=== PATIENT | male | born 1985 | race Caucasian/White ===

== ENCOUNTER 2019-07-08 20:58 | Emergency (ER) | payer BC, SELFPAY ==
[2019-07-08] VITALS (12 sets, daily range): BP systolic 129–146; BP diastolic 80–89; PULSE 90–120; RESP 22; TEMP 37.2; O2SAT 93–99
--- NOTE | ~2019-07-08 | XR_ITS ---
EXAMINATION: XR chest 2V 07/08/2019 21:30 INDICATION: Near syncope PROCEDURE: 2 view chest COMPARISON: No prior studies for comparison. FINDINGS: The lungs are clear. The cardiomediastinal silhouette is within normal limits. There are no pleural effusions. There is no pneumothorax suspected. IMPRESSION: 1: NO ACUTE CARDIOPULMONARY DISEASE. Reviewed, dictated and finalized at location A.
--- NOTE | 2019-07-08 21:08 | ECG_ITS ---
Measurements Intervals [place] Rate: 120 P: 58 ID: [id number] QRS: 76 QRSD: 104 T: -12 QT: 339 QTc: 479 Interpretive Statements SINUS TACHYCARDIA CONSIDER INFERIOR INFARCT, AGE INDETERMINATE BASELINE WANDER- II, III ABNORMAL ECG Electronically Signed On 07-09-2019 7:06:50 CDT by Adonis Montenegro D.O.
--- NOTE | 2019-07-08 21:08 | ED.GENADULT ---
HPI - General Adult General Chief complaint: Dizziness Stated complaint: blacked out at home Time Seen by Provider: 07/08/19 20:59 History of Present Illness HPI narrative: Patient is a 34-year-old male who presents the ER with near syncope. Patient states he was lying down when he got up to walk and started having tunnel vision. He briefly blacked out and hit his head on the wall but never collapsed to the ground. He had no facial droop or slurred speech or extremity weakness. Reports he has not been eating and drinking well over the last couple days. No fever/chills/sweats/nausea/vomiting. No dark black stools or hematemesis. Denies dysuria or dark-colored urine. Had one similar episode yesterday which is what prompted him to come in today. Related Data Allergies Allergy/AdvReac Type Severity Reaction Status Date / Time NKDA Allergy Mild Uncoded 02/26/10 16:49 Review of Systems Review of Systems: All systems reviewed & are unremarkable except as noted in HPI and below Cardiovascular: Cardiovascular: Denies chest pain Gastrointestinal: Gastrointestinal: Denies nausea and Denies vomiting Genitourinary: Genitourinary: Reports oliguria, Denies dysuria and Denies urinary frequency Neurologic: Reports dizziness, Denies focal weakness and Denies numbness Comments: Near syncope PMFSH Past Medical History Medical History (Updated 07/08/19 @ 23:45 by Randy Ferreira MD) Allergic conjunctivitis of both eyes Essential hypertension (04/15/17) Family history of early CAD grandfather age 37 Testicular dysfunction Varicose vein of leg Social History Social History Smoking status: Never smoker Alcohol intake: never Exam Narrative: Exam Narrative: GENERAL: Well-appearing, well-nourished, and in no acute distress. HEAD: Normocephalic, atraumatic. ENT: Mucous membranes moist. CHEST: Clear to auscultation. No respiratory distress. HEART: Tachycardic and regular. Normal peripheral pulses. EXTREMITIES: Normal range of motion. No edema. SKIN: Warm, dry, no rash. NEURO: Clear speech, normal gait/balance. Alert and oriented x3. PSYCH: Normal mood and affect. Course Course Emergency Course: Feels much better with fluid. Discharge home. Vital Signs Vital signs: Vital Signs Temperature 99.0 F 07/08/19 21:01 Respiratory Rate 22 H 07/08/19 21:01 Blood Pressure 138/87 07/08/19 21:01 Pulse Oximetry 98 07/08/19 21:01 Temperature 99.0 F 07/08/19 21:01 Pulse Rate 90 07/08/19 23:25 Respiratory Rate 22 H 07/08/19 23:25 Blood Pressure 137/89 07/08/19 23:25 Pulse Oximetry 96 07/08/19 23:25 Medical Decision Making Vital Signs Vital Signs: Vital Signs Temperature 99.0 F 07/08/19 21:01 Respiratory Rate 22 H 07/08/19 21:01 Blood Pressure 138/87 07/08/19 21:01 Pulse Oximetry 98 07/08/19 21:01 Temperature 99.0 F 07/08/19 21:01 Pulse Rate 90 07/08/19 23:25 Respiratory Rate 22 H 07/08/19 23:25 Blood Pressure 137/89 07/08/19 23:25 Pulse Oximetry 96 07/08/19 23:25 Lab Data Result diagrams: 07/08/19 21:23 07/08/19 21:23 Labs: Lab Results 07/08/19 07/08/19 07/08/19 Range/Units 21:23 21:23 23:08 WBC 7.4 (4.5-10.0) K/mm3 RBC 4.64 (4.6-6.20) M/mm3 Hgb 13.9 L (14.0-18.0) g/dL Hct 41.3 L (42.0-52.0) % MCV 89.0 (80-100) fl MCH 30.0 (26-34) pg MCHC 33.7 (32-36) g/dl RDW 13.6 (11.5-14.5) % Plt Count 245 (150-375) k/mm3 MPV 10.1 (7.4-10.4) fl Immature Gran % (Auto) 0.5 (0-0.5) % Neut % (Auto) 56.6 (45.5-73.1) % Lymph % (Auto) 31.2 (18.3-44.2) % [place] % (Auto) 9.9 H (2.6-8.5) % Eos % (Auto) 1.1 (0-4.4) % Baso % (Auto) 0.7 (0.2-1.2) % Lymph # (Auto) 2.29 (0.9-3.2) K/mm3 [place] # (Auto) 0.7 H (0.1-0.6) K/mm3 Eos # (Auto) 0.1 (0-0.3) K/mm3 Baso # (Auto) 0.1 (0.0-0.1) K/mm3 Abs
[2019-07-08 21:28] LABS: Basophils Absolute Auto 0.1 K/mm3 (0.0-0.1); Basophils Percent Auto 0.7 % (0.2-1.2); Eosinophils Absolute Auto 0.1 K/mm3 (0-0.3); Eosinophils Percent Auto 1.1 % (0-4.4); Hematocrit 41.3 % (42.0-52.0); Hemoglobin 13.9 g/dL (14.0-18.0); Immature Granulocyte Absolute 0.04 K/mm3 (0.00-0.031); Immature Granulocyte Percent A 0.5 % (0-0.5); Lymphocytes Absolute Auto 2.29 K/mm3 (0.9-3.2); Lymphocytes Percent Auto 31.2 % (18.3-44.2); Mean Corpuscular HGB Conc 33.7 g/dl (32-36); Mean Platelet Volume 10.1 fl (7.4-10.4); Monocytes Absolute Auto 0.7 K/mm3 (0.1-0.6); Monocytes Percent Auto 9.9 % (2.6-8.5); Neutrophils Absolute Auto 4.2 K/mm3 (1.3-6.7); Neutrophils Percent Auto 56.6 % (45.5-73.1); Platelet Count Result 245 k/mm3 (150-375); Red Blood Count 4.64 M/mm3 (4.6-6.20); Red Cell Distribution Width 13.6 % (11.5-14.5); White Blood Count 7.4 K/mm3 (4.5-10.0)
[2019-07-08] MEDS: SODIUM CHLORIDE 0.9% IV 1,000 ML 999 ML IV CONT ×2 (21:35→23:01)
[2019-07-08 21:40] LABS: Blood Urea Nitrogen 15 mg/dL (9-20); Calcium 9.4 mg/dL (8.4-10.2); Carbon Dioxide 27 mmol/L (22-30); Chloride 100 mmol/L (98-107); Estimated CRCL calculation 111 ml/min; Estimated Glomerular Filt Rate > 60; Glucose 129 mg/dL (75-110); Potassium 3.6 mmol/L (3.4-5.0); Sodium 136 mmol/L (137-145)
--- NOTE | 2019-07-08 21:46 | PC.NURSE ---
Pt states his vision became tunneled and then fell. Pt states he has been dizzy. Pt states he has HTN. Pt states his BP at home after this episode was lower than normal. Pt states it happened yesterday too.
[2019-07-08 23:33] LABS: Add Urine Microscopic? YES; Appearance Urine Clear (Clear); Bilirubin Urine Negative (Negative); Blood Urine Negative (Negative); Color Urine Yellow (Yellow); Glucose Urine UA Negative (Negative); Ketones Urine Negative (Negative); Leukocyte Esterase Ur Negative LEU/UL (Negative); Mucus Urine Few /lpf; Nitrate Urine Negative (Negative); Protein Urine 1+ mg/dL (Negative); RBC Urine 0-2 /hpf (0-2); Specific Grav Ur 1.024 (1.001-1.035); Squamous Epithelial Cell Urine Rare /hpf (Few); WBC Urine 0-3 /hpf
[2019-07-09 00:03] VITALS: BP 132/68; PULSE 88; RESP 20; TEMP 36.7; O2SAT 97
== END 2019-07-09 00:05 | disposition home or self-care (01) ==
PROVIDERS: Emergency Provider Emergency Medicine; PCP Family Medicine
DX: R55 Syncope and collapse (principal); E86.0 Dehydration; I10 Essential (primary) hypertension; R00.0 Tachycardia, unspecified; R94.31 Abnormal electrocardiogram [ECG] [EKG]
CPT/HCPCS: 36415; 71046; 80048; 81001; 85025; 93005; 96360; 96361; 99283; J7030

== ENCOUNTER 2019-09-10 12:12 | Outpatient (CLI) | payer BC, SELFPAY ==
--- NOTE | ~2019-09-10 | XR_ITS ---
EXAMINATION: XR knee LT min 4V DATE: 09/10/2019 12:48 INDICATION: Unspecified injury of left lower leg, initial encounter. TECHNIQUE: 4 views of left knee were obtained. COMPARISON: None. FINDINGS: Bone alignment is normal. No acute fracture. There is mild osteoarthritis of medial and pat ellofemoral compartments. There is cortical irregularity of the articular surface of lateral femoral condyle with bone volume loss. There is a 4.5 x 1.3 cm chronic appearing bone fragment anterolateral to lateral femoral condyle, likely a displaced osteochondral lesion. There is a small knee joint effu rubio. IMPRESSION: 1. Large displaced osteochondral lesion of lateral femoral condyle. 2. Mild osteoarthritis of medial and patellofemoral compartments. 3. Small knee joint effusion. Reviewed, dictated and finalized at location A.
== END 2019-09-10 12:13 | disposition home or self-care (01) ==
LOC: ANHIMG 12:19
PROVIDERS: PCP Family Medicine; Visit Provider Family Medicine
DX: S89.92XA Unspecified injury of left lower leg, initial encounter (principal); X58.XXXA Exposure to other specified factors, initial encounter; M25.462 Effusion, left knee; M17.12 Unilateral primary osteoarthritis, left knee
CPT/HCPCS: 73564

== ENCOUNTER → 2019-09-23 08:22 | Outpatient (CLI) | payer BC, SELFPAY ==
--- NOTE | ~2019-09-23 | MR_ITS ---
EXAMINATION: MR knee LT wo con DATE: 09/23/2019 09:04 INDICATION: Unspecified internal derangement of the left knee presenting with generalized left knee p ain and swelling post injury 3 weeks prior. TECHNIQUE: Magnetic resonance imaging (MRI) of the left knee was performed without intravenous contra st. Sequences included coronal PD-weighted FSE, coronal PD-weighted FS FSE, sagittal T2-weighted FSE , sagittal PD-weighted FS FSE and axial PD weighted fat saturated FSE. COMPARISON: None. FINDINGS: Medial compartment: Medial meniscus is normal. Articular cartilage is normal. Lateral compartment: Vertical linear increased signal of less than fluid intensity extending longitudinally in the periphe ral red zone of the posterior horn of the lateral meniscus consistent with meniscal tear or scarring related to old healed tear. Deep chondral ulceration and fissuring with irregular underlying articula r cortex and mild subarticular edema along the anterior weightbearing lateral femoral condyle. Mild c hondral swelling and mild chondral surface irregularity along the central aspect of the lateral tibia l plateau. Patellofemoral compartment: Deep chondral fissure along the lateral margin of the lateral trochlea without degenerative subarticu lar changes. Ligaments and tendons: Anterior and posterior cruciate ligaments are normal. The medial collateral ligament and fibular terri ateral ligament complex are normal. The extensor mechanism is normal. The visualized medial and later al hamstring tendons as well as the iliotibial band are normal. Fluid: Small left knee joint effusion. There is a 3.6 x 1.2 x 2.4 cm loose osteochondral body in the lateral gutter of the suprapatellar pouch along the lateral margin of the lateral trochlea. There is likely secondary reactive edema in the immediately adjacent fat along the posterior margin of the lateral gu tter. Osseous/other: Bone alignment is normal. 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 There is a 2.4 x 0.5 x 0.6 cm heterotopic ossicle along the medial and inferomedial margin of th e patella adjusting possible prior patellar subluxation injury with heterotopic ossification related to a chronic patellofemoral retinacular injury. No acute fracture or pathologic marrow replacing proc ess. Prominent subcutaneous varicosities about the knee. IMPRESSION: 1. Age-indeterminate longitudinal vertical tear versus healed tear at the posterior horn of the later al meniscus. This would affect clinical management MRI arthrogram could be obtained for differentiati on. 2. Mild lateral and patellofemoral osteoarthritis with high-grade chondromalacia at the former and mo derate grade chondromalacia at the latter. 3. 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 Heterotopic osseous along the medial and inferomedial margin of the pat debbie suggests possible prior patellofemoral retinacular injury related to prior patellar subluxation/ dislocation injury. 4. Small left knee joint effusion with large loose osteochondral body at the lateral gutter of the otero prapatellar pouch. Reviewed, dictated and finalized at location A. IMPRESSION: 1. Age-indeterminate longitudinal vertical tear versus healed tear at the poste rior horn of the lateral meniscus. This would affect clinical management MRI ar throgram could be obtained for differentiation. 2. Mild lateral and patellofemoral osteoarthritis with high-grade chondromalaci a at the former and moderate grade chondromalacia at the latter. 3. 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
== END ==
PROVIDERS: PCP Family Medicine; Visit Provider Family Medicine
DX: M17.12 Unilateral primary osteoarthritis, left knee (principal); M25.462 Effusion, left knee
CPT/HCPCS: 73721

== ENCOUNTER 2020-03-09 14:09 | Outpatient (CLI) | payer BC, SELFPAY ==
[2020-03-09 14:40] LABS: Anion Gap 9 mmol/L (8-16); Blood Urea Nitrogen 12 mg/dL (9-20); Calcium 9.6 mg/dL (8.4-10.2); Carbon Dioxide 31 mmol/L (22-30); Chloride 97 mmol/L (98-107); Estimated Glomerular Filt Rate > 60; Glucose 96 mg/dL (75-110); Potassium 4.1 mmol/L (3.4-5.0); Sodium 137 mmol/L (137-145)
== END 2020-03-09 14:10 | disposition home or self-care (01) ==
LOC: ANHSURGERY 14:13
PROVIDERS: Anesthesiology; PCP Family Medicine; Visit Provider Orthopaedic Surgery
DX: Z01.818 Encounter for other preprocedural examination (principal); I10 Essential (primary) hypertension
CPT/HCPCS: 36415; 80048

== ENCOUNTER 2020-03-12 00:43 | Outpatient (CLI) | payer BC, SELFPAY ==
[2020-03-12 20:15] LABS: SARS-CoV-2 RNA PCR Negative
== END 2020-03-12 00:44 | disposition home or self-care (01) ==
LOC: ANHCOVIDDT 00:43
PROVIDERS: PCP Family Medicine; Visit Provider Orthopaedic Surgery
DX: Z01.818 Encounter for other preprocedural examination (principal); Z20.828 Contact with and (suspected) exposure to other viral communicable diseases
CPT/HCPCS: 87635; C9803; U0003

== ENCOUNTER 2020-03-15 01:18 | Day surgery (SDC) | payer BC, SELFPAY ==
[2020-03-07 15:12] VITALS: BMI 28.5
--- NOTE | 2020-03-14 12:30 | WPDANESEPPF ---
Anes - Initial Pre Proc Eval Procedure: Operation Date: 03/15/20 12:30 Proposed Procedures p Left Knee Arthroscopic Loose Body Excision, Microfracture Lateral Femoral Condyle, Partial Lateral Meniscectomy - Keyshawn Duran MD Date/Time: 03/14/20 12:30 Surgeon: Keyshawn Duran MD Pre Op Diagnosis: left knee lateral meniscal tear, loose body, Patient Data Age: 34 Gender: M Height: 1.93 m Weight: 106.39 kg Allergies Allergy/AdvReac Type Severity Reaction Status Date / Time No Known Allergies Allergy Unverified 03/07/20 15:12 Home Medications Medication Instructions Recorded Confirmed Type lisinopril 10 1 tablet PO DAILY #90 tablet 08/20/19 03/15/20 Rx mg-hydrochlorothiazide 12.5 mg tablet Patient hx anesthesia problems: none Family hx anesthesia problems: none PMFSH Past Medical History Medical History Allergic conjunctivitis of both eyes Essential hypertension (04/15/17) Family history of early CAD grandfather age 37 History of gynecomastia Testicular dysfunction Varicose vein of leg Family History Family History Father Diabetes mellitus Hypertension Family history of elevated blood lipids Family history of cardiovascular disease Malignant neoplasm of prostate Mother Hypertension Other Lung cancer Social History Social History Smoking status: Never smoker Second hand tobacco smoke exposure: No Alcohol intake: never Substance use: never Living arrangements: with family Spiritual care concerns: No Anes - Eval Final PreProcedure Day of Procedure 03/14/20 12:30 Patient weight: overweight Heart: regular rate and rhythm Lungs: clear to auscultation and normal air movement Airway: Mallampati scale class III Neurological: alert and oriented Last oral intake: >/= 8 hours ASA classification: II Emergent: no Anesthetic plan: proceed Anesthesia type and monitoring: general LMA and standard monitoring Informed Consent: The patient's anesthetic plan and its attendant risks and benefits were discussed with the patient/family/POA. Questions were solicited and answers provided to the satisfaction of the patient/family/POA.
[2020-03-15] VITALS (7 sets, daily range): BP systolic 116–142; BP diastolic 64–90; PULSE 78–104; RESP 12–20; TEMP 35.9–36.3; O2SAT 99–100
--- NOTE | 2020-03-15 07:19 | WPDHPUPDATE1 ---
History and Physical Update Update Date/Time: 03/15/20 07:19 History and Physical has been reviewed, including an updated exam of the patient. There are NO changes in the patient's condition. Risks, benefits, and alternatives have been discussed and questions answered. Patient agrees to proceed with procedure.
[2020-03-15] MEDS: ACETAMINOPHEN 500 MG TABLET 1000 MG PO (10:38)
[2020-03-15] MEDS: LACTATED RINGERS 1,000 ML 30 ML IV CONT ×2 (10:50→14:07)
[2020-03-15] MEDS: KETOROLAC 15 MG/ML VIAL (*BKC) IV PUSH (10:53)
[2020-03-15] MEDS: ceFAZolin 2 GM/D5W 50 ML 2 GM/50 ML BAG IVPB (12:45)
[2020-03-15] MEDS: BUPIVACAINE/EPINEPHRINE 0.25% 10 ML VIAL 20 ML INFILTRATE (13:01)
--- NOTE | 2020-03-15 14:37 | P.OP_ITS ---
Procedure Note - Detailed Date of procedure: 03/15/20 Pre-op diagnosis: left knee lateral meniscal tear, loose body, Post-op diagnosis: other (1. Loose body left knee 2. Osteochondral defect left knee) Procedure performed: 1. Arthroscopic loose body removal 2. Chondroplasty lateral femoral chondyle. Description of procedure: Large 3 cm loose body at the lateral gutter. Removed through a separate incision superior lateral. The menisci appeared entirely normal. The medial femoral condyle had a large area of a healed defect. Not amenable to microfracture due to large size and poorly defined margins. Patellofemoral and medial cartilage with only mild chondromalacia. Anesthesia: GETA Surgeon: Keyshawn Duran MD Estimated blood loss (mL): 20 Complications: None Condition: stable Findings: Brief History: The patient complained of knee pain, swelling and mechanical symptoms despite conservative treatment. MRI confirmed the presence of a meniscus tear. Operative Findings: Procedure Details: The patient was identified and the surgical site confirmed and signed in the preoperative holding area. Antibiotics were started per protocol. She was brought to the operative room and transferred to the OR table. A general anesthetic was administered. Supine position with the operative lower extremity position in the leg pichardo after placement of a well padded tourniquet. The leg support was lowered and the contralateral limb was supported with a soft bolster. The knee was prepped and draped in the usual sterile fashion. A time-out was performed. The portal sites were marked and infiltrated with 0.5% Marcaine 20 mL. The limb was exsanguinated and the tourniquet inflated to 300 mL Hg. Standard inferolateral and inferomedial portals were established. Inflow was obtained with the saline pump. The camera was introduced. Diagnostic inspection of the joint was accomplished. The meniscus was debrided with the arthroscopic shaver and punches until stable. The arthroscopic instruments were removed. The tourniquet released and wounds cl osed with subcutaneous 3-0 Monocryl absorbable suture. Steri strips and a sterile dressing were applied. A light elastic wrap was placed. The patient was extubated and brought to the recovery room in stable condition.
== END 2020-03-15 16:07 | disposition home or self-care (01) ==
PROVIDERS: PCP Family Medicine; Visit Provider Orthopaedic Surgery
PROC: (CPT 29870; principal; 2020-03-15 12:30)
DX: M23.42 Loose body in knee, left knee (principal); M94.262 Chondromalacia, left knee; I10 Essential (primary) hypertension
CPT/HCPCS: 29877; A9270; J0690; J1100; J1885; J2250; J2405; J2704; J3010; J7120

== ENCOUNTER 2020-07-23 23:20 | Emergency (ER) | payer BC, SELFPAY ==
--- NOTE | ~2020-07-23 | XR_ITS ---
EXAMINATION: XR knee RT 3V DATE: 07/23/2020 23:42 INDICATION: Right patella dislocation status post reduction. TECHNIQUE: 3 views of right knee were obtained. COMPARISON: None. FINDINGS: Bone alignment is normal. No fracture. There is mild osteoarthritis of medial compartment c haracterized by tiny marginal osteophyte. There is a small knee joint effusion with small loose body. IMPRESSION: 1. Mild right knee osteoarthritis. 2. Small right knee joint effusion with small loose body. Reviewed, dictated and finalized at location A.
[2020-07-23 23:30] VITALS: BP 134/76; PULSE 72; RESP 12; TEMP 36.8; O2SAT 93
[2020-07-23] MEDS: MORPHINE SULFATE (*CRX) 4 MG/ML INJ IV PUSH (23:39)
[2020-07-23] MEDS: ONDANSETRON INJ 4 MG/2 ML VIAL IV PUSH (23:45)
[2020-07-23 23:58] VITALS: BP 140/70; PULSE 102; RESP 18; O2SAT 91
[2020-07-24] VITALS: O2SAT 85
--- NOTE | 2020-07-24 | PC.NURSE ---
pt placed on 2L due to o2 saturation decreasing to 85% RA after morphine administration, notified.
[2020-07-24 00:01] VITALS: O2SAT 99
--- NOTE | 2020-07-24 00:05 | ED.GENADULT ---
HPI - General Adult General Chief complaint: Extremity Injury, Lower Stated complaint: patella dislocation s/p ground level fall Time Seen by Provider: 07/23/20 23:22 History of Present Illness HPI narrative: Patient 35-year-old gentleman who presents the emergency department with chief complaint of patellar dislocation. The patient states he slipped on a piece of patch plastic and twisted his knee and his kneecap flipped to the lateral side. The patient states it is exquisitely painful patient called EMS they gave him 100 mics of fentanyl in route to the emergency department and upon arrival to the emergency department the patient states it was exquisitely painful and reports that he has a dislocation of his kneecap. Related Data Allergies Allergy/AdvReac Type Severity Reaction Status Date / Time No Known Allergies Allergy Verified 06/14/20 15:12 Review of Systems Review of Systems: Narrative: A 10 system review of systems was completed on the patient and is negative except for what is stated in the HPI. Nursing and ancillary documentation was reviewed. [facility] Past Medical History Medical History Allergic conjunctivitis of both eyes Essential hypertension (04/15/17) Family history of early CAD grandfather age 37 History of gynecomastia Testicular dysfunction Varicose vein of leg Surgical History Surgical History Hx of arthroscopic knee surgery (~03/15/20) loose body removed Family History Family History Father Diabetes mellitus Hypertension Family history of elevated blood lipids Family history of cardiovascular disease Malignant neoplasm of prostate Mother Hypertension Other Lung cancer Social History Social History Smoking status: Never smoker Second hand tobacco smoke exposure: No Alcohol intake: never Substance use: never Spiritual care concerns: No Exam Narrative: Exam Narrative: GENERAL: Well-appearing, well-nourished, and in no acute distress. HEAD: Normocephalic, atraumatic. EYES: PERRLA and EOMI. ENT: Nares clear, no rhinorrhea or epistaxis. Mucous membranes moist. NECK: Supple. CHEST: Clear to auscultation. No respiratory distress. HEART: Regular rate and rhythm. No murmur heard. Normal peripheral pulses. ABDOMEN: Soft, nontender, nondistended, normal active bowel sounds. EXTREMITIES: Normal range of motion. No edema. Obvious patellar dislocation on exam SKIN: Warm, dry, no rash. NEURO: No focal deficits. Alert and oriented x3. PSYCH: Normal mood and affect. Course Vital Signs Vital signs: Vital Signs Temperature 36.8 C 07/23/20 23:30 Pulse Rate 72 07/23/20 23:30 Respiratory Rate 12 07/23/20 23:30 Blood Pressure 134/76 07/23/20 23:30 Pulse Oximetry 93 07/23/20 23:30 Temperature 36.8 C 07/23/20 23:30 Pulse Rate 102 H 07/23/20 23:58 Respiratory Rate 18 07/23/20 23:58 Blood Pressure 140/70 07/23/20 23:58 Pulse Oximetry 99 07/23/20 23:58 Procedures Orthopedic Joint Reduction Joint #1: Orthopedic Joint Reduction Date: 07/24/20 Orthopedic Joint Reduction Time: 00:14 Time Out Performed: Yes Side: right Joint Reduction Location: knee/patella Analgesia: none Pre-Procedure Neuro Vascular Exam: normal Technique used: direct manipulation Post-reduction neuro exam: intact Post-reduction vascular: intact Post Reduction X-Ray Obtained: Yes Post Reduction X-Ray Results: reduced Splint Applied: Yes Patient Tolerated Procedure: well Medical Decision Making Vital Signs Vital Signs: Vital Signs Temperature 36.8 C 07/23/20 23:30 Pulse Rate 72 07/23/20 23:30 Respiratory Rate 12 07/23/20 23:30
[2020-07-24 01:03] VITALS: PULSE 102; RESP 20; O2SAT 100
[2020-07-24] MEDS: HYDROcodone/acetaminophen (*CRX) 5-325 MG TABLET 1 TAB PO (01:13)
[2020-07-24 01:14] VITALS: BP 124/75; PULSE 98; RESP 18; O2SAT 100
== END 2020-07-24 01:17 | disposition home or self-care (01) ==
PROVIDERS: Emergency Provider Emergency Medicine; PCP Family Medicine
DX: S83.004A Unspecified dislocation of right patella, initial encounter (principal); I10 Essential (primary) hypertension; M17.11 Unilateral primary osteoarthritis, right knee; W01.0XXA Fall on same level from slipping, tripping and stumbling without subsequent striking against object, initial encounter
CPT/HCPCS: 27560; 73562; 96374; 96375; 99285; A9270; J2270; J2405

== ENCOUNTER → 2020-10-20 15:26 | Outpatient (CLI) | payer BC, SELFPAY ==
--- NOTE | ~2020-10-20 | MR_ITS ---
EXAMINATION: MR knee RT wo con DATE: 10/20/2020 16:02 INDICATION: Right patellar dislocation TECHNIQUE: Magnetic resonance imaging (MRI) of the right knee was performed without intravenous contr ast. Sequences included coronal PD-weighted FSE, coronal PD-weighted FS FSE, sagittal T2-weighted FS E, sagittal PD-weighted FS FSE and axial PD weighted fat saturated FSE. COMPARISON: Right knee radiographs dated 07/23/2020 FINDINGS: Medial compartment: Medial meniscus is normal. Articular cartilage is normal. Lateral compartment: Linear increased signal extending obliquely to the inferior articular surface across the peripheral i nferior corner of the junction of the body and posterior horn of the lateral meniscus but which is se en on only one sagittal image, series 7, image 5 which does not meet strict criteria for meniscal tea r and remains equivocal for tear versus artifact. Small partial-thickness chondral fissure at the gama tral aspect of the lateral tibial plateau. Patellofemoral compartment: Partial-thickness chondral fissure at the central aspect of the lateral patellar facet. Trochlear car tilage is normal. Ligaments and tendons: Anterior cruciate ligament is normal. There is thickening the vertical component of the posterior cru ciate ligament with diffuse mild increased intrasubstance signal consistent with at least partial tea r. There is thickening and increased intrasubstance signal of the proximal medial collateral ligament including anteriorly at the confluence with the medial patellofemoral retinaculum without significan t surrounding edema consistent with scarring related to chronic sprain. The fibular collateral ligame nt is normal. The patellar and quadriceps tendons are normal. The visualized medial and lateral hamst ring tendons as well as the iliotibial band are normal. Fluid: Physiologic amount of fluid in the joint space. No loose osteochondral bodies identified. Osseous/other: Patella erich with an increased Insall-Salvati ratio of 1.8. There is trochlear dysplasia with borderl ine decreased lateral trochlear inclination measuring 11 degrees, borderline for decreased trochlear facet asymmetry with trochlear facet ratio of 42% and mildly decreased trochlear depth of 2-2.5 mm. M ild increased marrow signal along the lateral nonarticular surface of the lateral trochlea and locati on consistent with possible bone contusion in the setting of patellar dislocation/relocation injury. Otherwise normal marrow signal. No fracture or abnormal marrow replacing process. IMPRESSION: 1. Patella erich and mild trochlear dysplasia which could predispose towards patellar instability. 2. Scarring consistent with chronic sprain of the medial collateral ligament and medial patellofemora l retinaculum and bone contusion at the lateral nonarticular surface of the lateral trochlea consiste nt with a patellar dislocation/relocation injury pattern. 3. Mild osteoarthritis with small partial-thickness chondral fissures at the lateral tibial plateau a nd lateral patellar facet. 4. Linear increased signal at the posterolateral aspect of the lateral meniscus seen on only one imag e which does not meet strict MRI criteria for meniscal tear which is equivocal for tear versus artifa ct. Reviewed, dictated and finalized at location A. IMPRESSION: 1. Patella erich and mild trochlear dysplasia which could predispose towards pat ellar instability. 2. Scarring consistent with chronic sprain of the medial collateral ligament an d medial patellofemoral retinaculum and bone contusion at the lateral nonarticu lar surface of the lateral trochlea consistent with a patellar dislocation/relo cation injury pattern. 3. Mild osteoarthritis with small partial-thickness chondral
== END ==
PROVIDERS: Visit Provider Orthopaedic Surgery
DX: S83.004A Unspecified dislocation of right patella, initial encounter (principal); X58.XXXA Exposure to other specified factors, initial encounter
CPT/HCPCS: 73721

== ENCOUNTER → 2021-02-09 03:08 | Outpatient (CLI) | payer BC, SELFPAY ==
[2021-02-09 17:50] LABS: SARS-CoV-2 RNA PCR Negative
== END ==
PROVIDERS: PCP Family Medicine; Visit Provider Family Medicine
DX: R53.83 Other fatigue (principal); R09.89 Other specified symptoms and signs involving the circulatory and respiratory systems; Z20.822 Contact with and (suspected) exposure to COVID-19
CPT/HCPCS: C9803; U0003; U0005

== ENCOUNTER 2021-03-15 13:49 | Outpatient (CLI) | payer BC, SELFPAY ==
--- NOTE | 2021-03-15 14:06 | ECG_ITS ---
Measurements Intervals [place] Rate: 63 P: 25 IA: 136 QRS: 81 QRSD: 97 T: 52 QT: 407 QTc: 417 Interpretive Statements SINUS RHYTHM BASELINE ARTIFACT- I, II, III, AVR, AVL, AVF NORMAL ECG Electronically Signed On 03-15-2021 14:40:54 [employer]GING [employer]ESS LEVER TENDER by Adonis Montenegro D.O.
[2021-03-15 14:38] LABS: Anion Gap 11 mmol/L (8-16); Blood Urea Nitrogen 13 mg/dL (9-20); Calcium 9.5 mg/dL (8.4-10.2); Carbon Dioxide 29 mmol/L (22-30); Chloride 98 mmol/L (98-107); Estimated Glomerular Filt Rate > 60; Glucose 102 mg/dL (65-110); Sodium 138 mmol/L (137-145)
== END 2021-03-15 13:50 | disposition home or self-care (01) ==
LOC: ANHSURGERY 13:53
PROVIDERS: Anesthesiology; PCP Family Medicine; Visit Provider Orthopaedic Surgery
DX: I10 Essential (primary) hypertension (principal); Z79.899 Other long term (current) drug therapy; Z01.818 Encounter for other preprocedural examination
CPT/HCPCS: 36415; 80048; 93005

== ENCOUNTER 2021-03-21 01:03 | Day surgery (SDC) | payer BC, SELFPAY ==
[2021-03-10 15:16] VITALS: BMI 28.6
--- NOTE | 2021-03-10 15:20 | PC.NURSE ---
Report to the Outpatient Waiting Room, entrance under the green pavilion located off [facility], at time _0900__ on date 03-21-2021_. OR Time: __1100_. - You and your visitor will be asked a series of questions to screen for COVID 19 for your protection. - A mask is required within the hospital. - Only one visitor is allowed at this time. Patient visitors will be guided where to wait when not with patient. Preoperative COVID Testing Requirements: No COVID Test needed if: (proof is required; if not received patient will have Rapid Test prior to entry) - Patient has received COVID Vaccine at least 14 days prior to procedure date or - Patient has positive COVID test result within last 90 days of surgery date. COVID Test needed if above criteria is not met If not COVID vaccinated a COVID test must be conducted within 72 hours of surgery and patient is asked to isolate self from time of testing until procedure. You will go to the [facility] Testing Site for your COVID testing. The [facility] [facility] is located at the corner of [address] from [facility]. You will only be called if COVID results are positive and your surgeon may reschedule your elective surgery date. Patients may have clear liquids (water, carbonated beverages, clear teas, apple juice) until 3 hours prior to surgery with a maximum of 20 ounces. - No food from midnight until time of surgery - Infants may have breast milk until 4 hours before surgery, formula 6 hours prior to surgery. - Children will be allowed to drink immediately following surgery. If applicable, please bring a bottle or sippy cup to assist with drinking. Juice, water, soda, and popsicles are readily available. For infants on formula, please bring formula the day of surgery. Pacifiers are allowed. Take the following medications with a SIP of water the morning of surgery: Medications to discontinue per physician Date to take last dose Please no make-up, nail comoran, hairspray, perfume, deodorant, or body powder the day of surgery. No jewelry (including any body piercings) or valuables the day of surgery, leave them at home. Please take a shower or bath the night before, or the morning of, surgery with an antibacterial soap. Wear comfortable, loose fitting clothing. Children are encouraged to wear pajamas. - Jewelry must be removed prior to entering the operating room. Rings and piercings that are not removed may be cut off. - The hospital will not accept responsibility for valuables. - Please leave all valuables, including medications, at home the day of surgery. If you are going home after surgery, a licensed dedicated local truck driver must drive you home. - NO public transportation without another adult. - We recommend that an adult stay with you for 24 hours following discharge. - We also recommend that you do not drive, make important decision, drink alcoholic beverages, or take any drugs that were not prescribed by your health care provider for at least 24 hours after your discharge time. For Pediatric surgeries, we recommend two adults accompany the child home (only one inside the building at this time). Follow any additional instructions given to you from your surgeon. Telephone instructions given to ___Patient and asked if any additional questions and then verbalized understanding. Patient advised to call surgeon office or pre surgery nurse liaison [phone] if any additional questions.
[2021-03-21] VITALS (11 sets, daily range): BP systolic 101–127; BP diastolic 65–90; PULSE 57–92; RESP 12–18; TEMP 36.1–36.5; O2SAT 97–100; BMI 28.6
--- NOTE | 2021-03-21 09:03 | P.PNAN_ITS ---
Anes - Initial Pre Proc Eval Procedure: Operation Date: 03/21/21 11:00 Proposed Procedures p Right Arthroscopic, Partial and Lateral Meniscectomy with Manipulation - Keyshawn Duran MD Date/Time: 03/21/21 09:03 Surgeon: Keyshawn Duran MD Pre Op Diagnosis: right patellar dislocation Patient Data Age: 35 Gender: M Height: 1.93 m Weight: 106.8 kg Allergies Allergy/AdvReac Type Severity Reaction Status Date / Time No Known Allergies Allergy Verified 03/21/21 09:14 Home Medications Medication Instructions Recorded Confirmed Type lisinopril 10 See Rx Instructions .ROUTE 10/14/20 03/21/21 Rx mg-hydrochlorothiazide 12.5 mg .COMPLEX #90 tablet tablet testosterone 1 % (50 mg/5 gram) 50 mg TRANSDERMAL QAM 30 Days #150 01/04/21 03/21/21 Rx transdermal gel packet g Patient hx anesthesia problems: none Family hx anesthesia problems: none Results Review: All pre-operative results and documents have been reviewed as part of the pre-operative evaluation. FORMERLY [facility], [facility] Past Medical History Medical History Allergic conjunctivitis of both eyes Essential hypertension (04/15/17) Family history of early CAD grandfather age 37 History of gynecomastia Testicular dysfunction Varicose vein of leg Surgical History Surgical History Hx of arthroscopic knee surgery (~03/15/20) loose body removed Family History Family History Father Diabetes mellitus Hypertension Family history of elevated blood lipids Family history of cardiovascular disease Malignant neoplasm of prostate Mother Hypertension Other Lung cancer Social History Social History Smoking status: Never smoker Second hand tobacco smoke exposure: No Alcohol intake: never Substance use: never Living arrangements: with family Spiritual care concerns: No Anes - Eval Final PreProcedure Day of Procedure 03/21/21 09:03 Patient weight: overweight Heart: regular rate and rhythm Lungs: clear to auscultation and normal air movement Airway: Mallampati scale class II Neurological: alert and oriented Last oral intake: >/= 8 hours ASA classification: II Emergent: no Anesthetic plan: proceed Anesthesia type and monitoring: general LMA Results Review: All pre-operative results and documents have been reviewed as part of the pre-operative evaluation. Informed Consent: The patient's anesthetic plan and its attendant risks and benefits were discussed with the patient/family/POA. Questions were solicited and answers provided to the satisfaction of the patient/family/POA.
[2021-03-21] MEDS: LACTATED RINGERS 1,000 ML 30 ML IV CONT ×2 (09:49→11:21)
[2021-03-21] MEDS: KETOROLAC 15 MG/ML VIAL (*BKC) IV PUSH (09:49)
[2021-03-21] MEDS: ACETAMINOPHEN 500 MG TABLET 1000 MG PO (09:49)
--- NOTE | 2021-03-21 10:16 | WPDHPUPDATE1 ---
History and Physical Update Update Date/Time: 03/21/21 10:16 History and Physical has been reviewed, including an updated exam of the patient. There are NO changes in the patient's condition. Risks, benefits, and alternatives have been discussed and questions answered. Patient agrees to proceed with procedure.
[2021-03-21] MEDS: ceFAZolin 2 GM/D5W 50 ML 2 GM/50 ML BAG IVPB (10:23)
[2021-03-21] MEDS: BUPIVACAINE HCL 0.5% PF 30 ML VIAL INFILTRATE (10:49)
[2021-03-21] MEDS: oxyCODONE HCL (*CRX) 5 MG TAB IR PO (13:30)
--- NOTE | 2021-03-21 13:37 | SUR.PHASEII ---
pt meets discharge criteria and is waiting for his ride ETA 3pm
--- NOTE | 2021-03-21 14:04 | SUR.PHASEII ---
pt is still waiting on his ride and denies any needs at this time. breathing even and unlabored pt in nad.
--- NOTE | 2021-03-21 14:15 | W.PM.PROC2 ---
Procedure Note - Detailed Date of Procedure 03/21/21 Pre-op Diagnosis 1. Right patellar dislocation 2. Right knee contracture. Post-op Diagnosis same Procedure Performed 1. Arthroscopic limited synovectomy. 2. Manipulation under anesthesia. Surgeon Keyshawn Duran MD Electric Sealing Machine Operator Madeleine Goss PA-C Anesthesia general Indications Patient suffered a patellar dislocation. Denied further instability but developed a significant knee contracture despite ongoing physical therapy and an injection. He did not wish to have patellar realignment or stabilization but desired improved range of motion. Findings Moderate thickened synovial tissue folds in the superior pouch. These were excised arthroscopically. Normal menisci. Moderate patellofemoral chondromalacia and lateral subluxation of the patella. Lateral restraints were not tight. Medial retinacular tissue appeared attenuated at the insertion on the patella. Description of Procedure General anesthetic was administered. The knee was prepped and draped in usual sterile fashion. Preoperative antibiotics were given. The knee was quite stiff with flexion to approximately 80? preoperatively. Arthroscopic portals were created in the standard fashion inferomedial and inferolateral. Inflow obtained with saline pump. Inspection revealed benign medial and lateral compartments. ACL intact. Normal menisci. Several thickened folds of synovium in the superior pouch. These were shaved with the arthroscopic shaver. Patella sat quite laterally. The lateral strength were not tight. Medial retinacular tissue near the insertion of the patella. Attenuated. The arthroscopic instruments removed. Wounds were closed with interrupted 4-0 Monocryl suture followed by Steri-Strips. The knee was carefully manipulated into flexion of approximately 115?. This matched his contralateral knee. The patient was extubated and brought to the recovery room in stable condition. There were no complications. Estimated Blood Loss 2 Complications No immediate complications Condition stable Disposition same day
--- NOTE | 2021-03-21 14:23 | SUR.PHASEII ---
pt denies any needs at this time. pt said he feels great. This nurse called pt and she said she is about to leave work in 10 minutes.
== END 2021-03-21 15:29 | disposition home or self-care (01) ==
PROVIDERS: PCP Family Medicine; Visit Provider Orthopaedic Surgery
PROC: (CPT 29870; principal; 2021-03-21 11:00)
DX: S83.004A Unspecified dislocation of right patella, initial encounter (principal); X58.XXXA Exposure to other specified factors, initial encounter; M24.561 Contracture, right knee; M22.41 Chondromalacia patellae, right knee; I10 Essential (primary) hypertension
CPT/HCPCS: 29875; 36415; 80048; 93005; A9270; J0690; J1100; J1885; J2250; J2405; J2704; J3010; J7120

== ENCOUNTER → 2021-03-29 02:42 | Outpatient (CLI) | payer BC, SELFPAY ==
[2021-03-29 13:26] LABS: Influenza Control Positive
[2021-03-29 21:06] LABS: SARS-CoV-2 RNA PCR Negative
== END ==
PROVIDERS: PCP Family Medicine; Visit Provider Family Medicine
DX: R51.9 Headache, unspecified (principal); R09.81 Nasal congestion; J02.9 Acute pharyngitis, unspecified; R05.9 Cough, unspecified; Z20.822 Contact with and (suspected) exposure to COVID-19
CPT/HCPCS: 87804; C9803; U0003; U0005

== ENCOUNTER 2022-03-09 08:09 | Outpatient (CLI) | payer BC, SELFPAY ==
--- NOTE | 2022-03-17 19:56 | WPDHOMESLEEP ---
Sleep Study - Home Unattended Date of Study: 03/09/22 Ordering Provider: Denver Dodd PA-C Interpreting Provider: Augusta Arvizu, DO Home Sleep Study Type: Watch PAT Height: 1.93 m Weight: 111.13 kg Body Mass Index: 29.8 Neck Circumference (inches): 16 [place]: 7 Reason for Sleep Study Unrefreshing sleep and daytime hypersomnia Sleep History The patient is a 36-year-old male with hypertension, varicose veins hypogonadism but had a sleep study ordered for evaluation of sleep apnea. The patient rarely awakens from sleep short of breath. He occasionally awakens at night with heartburn, belching or cough. He constantly snores and is frequently loud enough that others complain. He frequently has trouble sleeping when he has a cold. He denies waking up gasping for air throughout the night. He occasionally has breathing problems at night observed by himself or others. He occasionally sweats excessively at night. He occasionally has heart palpitations or irregular heartbeats during the night. He frequently falls asleep during the day but never while driving. He denies sleep paralysis, cataplexy and hypnagogic / hypnopompic hallucinations. He occasionally has trouble at school or work due to sleepiness. He rarely has nightmares. He rarely remembers his dreams. He occasionally has thoughts racing through his mind. He frequently feels sad or depressed. He constantly has anxiety. He rarely has muscular tension. He rarely notices parts of his body jerk. He rarely kicks during the night. He denies having crawling and aching feelings in his legs and rarely has leg pain during the night. He rarely grinds his teeth during sleep but occasionally awakens with a morning jaw pain. He denies being bothered by pain during the day and denies being awakened by pain during the night. He denies waking up feeling stiff in the morning. He denies waking up with sore or achy muscles. He rarely wakes up with pain in the neck, spine or other joints. He goes to bed at 10:00 p.m. on weekdays and 11:00 p.m. on the weekends. He can fall asleep quickly. He does not typically wake up throughout the night. He wakes up at 3:10 a.m. on weekdays and at 6:30 a.m. on the weekends. He typically gets 6 hours of sleep per night. He does not stay in bed after waking up in the morning. He currently lives with his and 5-year-old child. He does not consume any caffeinated beverages within 2 hours of bedtime. He does not engage in physical exercise before bedtime. He will watch television before falling asleep. He will take naps in the afternoon the evening but they are not refreshing. He drinks 3 caffeinated beverages per day. He denies tobacco, alcohol and recreational drug use. FORMERLY [facility], LATER [facility] Past Medical History Medical History Allergic conjunctivitis of both eyes COVID-19 Essential hypertension (04/15/17) Family history of early CAD grandfather age 37 History of gynecomastia Testicular dysfunction Varicose vein of leg Surgical History Surgical History History of arthroscopic knee surgery (~03/21/21) Limited Synovectomy w/Manipulation - Rt Knee Hx of arthroscopic knee surgery (~03/15/20) loose body removed, LEFT KNEE Family History Family History Father Diabetes mellitus Hypertension Family history of elevated blood lipids Family history of cardiovascular disease Malignant neoplasm of prostate Mother Hypertension Other Lung cancer Social History Social History Smoking status: Never smoker Second hand tobacco smoke exposure: No Alcohol intake: never Substance use: never Substance use type: does not use Additional occupation/education comments: help desk for Spiritual care concerns:
[2022-03-17 20:08] VITALS: BMI 29.8
--- NOTE | 2022-05-09 09:18 | SLEEP ---
new calls [phone]
== END 2022-03-12 10:35 | disposition home or self-care (01) ==
LOC: ANHCSM 08:17
PROVIDERS: PCP Family Medicine; Visit Provider Physician Assistant
DX: G47.33 Obstructive sleep apnea (adult) (pediatric) (principal)
CPT/HCPCS: 95800

== ENCOUNTER 2022-04-26 08:37 | Outpatient (CLI) | payer BC, SELFPAY ==
--- NOTE | 2022-05-15 14:39 | WPDSLEEPSTUD ---
Sleep Study Date of Study: 04/26/22 Ordering Provider: Augusta Arvizu DO Interpreting Physician: Augusta Arvizu DO Sleep Study Type: Split Polysomnogram Height: 1.93 m Weight: 111.13 kg Body Mass Index: 29.8 Neck Circumference (inches): 17 [place]: 7 Reason for Sleep Study Negative HSAT on 03/09/2022 but discrepancy between AHI and RDI Sleep History The patient is a 37-year-old male with hypertension, varicose veins and hypogonadism that had a sleep study ordered for evaluation of sleep apnea.? The patient rarely awakens from sleep short of breath.? He occasionally awakens at night with heartburn, belching or cough.? He constantly snores and is frequently loud enough that others complain.? He frequently has trouble sleeping when he has a cold.? He denies waking up gasping for air throughout the night.? He occasionally has breathing problems at night observed by himself or others.? He occasionally sweats excessively at night.? He occasionally has heart palpitations or irregular heartbeats during the night.? He frequently falls asleep during the day but never while driving.? He denies sleep paralysis, cataplexy and hypnagogic / hypnopompic hallucinations.? He occasionally has trouble at school or work due to sleepiness.? He rarely has nightmares.? He rarely remembers his dreams.? He occasionally has thoughts racing through his mind.? He frequently feels sad or depressed.? He constantly has anxiety.? He rarely has muscular tension.? He rarely notices parts of his body jerk.? He rarely kicks during the night.? He denies having crawling and aching feelings in his legs and rarely has leg pain during the night.? He rarely grinds his teeth during sleep but occasionally awakens with a morning jaw pain.? He denies being bothered by pain during the day and denies being awakened by pain during the night.? He denies waking up feeling stiff in the morning.? He denies waking up with sore or achy muscles.? He rarely wakes up with pain in the neck, spine or other joints.? He goes to bed at 10:00 p.m. on weekdays and 11:00 p.m. on the weekends.? He can fall asleep quickly.? He does not typically wake up throughout the night.? He wakes up at 3:10 a.m. on weekdays and at 6:30 a.m. on the weekends.? He typically gets 6 hours of sleep per night.? He does not stay in bed after waking up in the morning.? He currently lives with his and 5-year-old child.? He does not consume any caffeinated beverages within 2 hours of bedtime.? He does not engage in physical exercise before bedtime.? He will watch television before falling asleep.? He will take naps in the afternoon the evening but they are not refreshing.? He drinks 3 caffeinated beverages per day.? He denies tobacco, alcohol and recreational drug use. FORMERLY [facility], LATER [facility] Past Medical History Medical History Allergic conjunctivitis of both eyes COVID-19 Essential hypertension (04/15/17) Family history of early CAD grandfather age 37 History of gynecomastia Testicular dysfunction Varicose vein of leg Surgical History Surgical History History of arthroscopic knee surgery (~03/21/21) Limited Synovectomy w/Manipulation - Rt Knee Hx of arthroscopic knee surgery (~03/15/20) loose body removed, LEFT KNEE Family History Family History Father Diabetes mellitus Hypertension Family history of elevated blood lipids Family history of cardiovascular disease Malignant neoplasm of prostate Mother Hypertension Other Lung cancer Social History Social History Smoking status: Never smoker Second hand tobacco smoke exposure: No Alcohol intake: never Substance use: never Substance use type: does not use Living arrangements: with family Occupation/Education: occupation Additi
[2022-05-15 14:44] VITALS: BMI 29.8
== END 2022-04-27 07:15 | disposition home or self-care (01) ==
LOC: ANHCSM 08:38
PROVIDERS: PCP Family Medicine; Visit Provider Family Medicine
DX: G47.33 Obstructive sleep apnea (adult) (pediatric) (principal)
CPT/HCPCS: 95811

== ENCOUNTER 2023-02-27 15:31 | Emergency (ER) | payer BC, SELFPAY ==
[2023-02-27 15:40] VITALS: BP 130/87; PULSE 89; RESP 16; TEMP 36.9; O2SAT 98
--- NOTE | 2023-02-27 16:05 | ED.URI ---
HPI - URI/Sore Throat General Chief Complaint: Upper Respiratory Infection Stated Complaint: Cough Source: patient Mode of arrival: ambulatory Limitations: no limitations History of Present Illness HPI Narrative: 37-year-old male presented for complaint of cough and sinus congestion for over 1 month. Endorses occasional was found while breathing. He has taken Mucinex for symptoms. He denies shortness of breath chest pain, heart racing, dizziness, nausea vomiting, fevers or chills. Related Data Allergies Allergy/AdvReac Type Severity Reaction Status Date / Time No Known Allergies Allergy Verified 02/22/23 09:39 Review of Systems Review of Systems: CONSTITUTIONAL: Denies body aches, fever, chills, or sweats. EYES: Denies visual changes, redness, or discharge. ENT: reports rhinorrhea, congestion, Denies sore throat, or otalgia. CARDIOVASCULAR: Denies chest pain, palpitations, or edema. RESPIRATORY: Reports cough, wheezing. Denies shortness of breath GASTROINTESTINAL: Denies abdominal pain, nausea, vomiting, or diarrhea. GENITOURINARY: Denies dysuria or hematuria. SKIN: Denies rash, itching, or wounds. MUSCULOSKELETAL: Denies back pain, joint pain, or myalgia. NEUROLOGIC: Denies headache, numbness, tingling, or weakness. All systems reviewed & are unremarkable except as noted in HPI and below PMFSH Past Medical History Medical History Allergic conjunctivitis of both eyes COVID-19 Essential hypertension (04/15/17) Family history of early CAD grandfather age 37 History of gynecomastia Testicular dysfunction Varicose vein of leg Surgical History Surgical History History of arthroscopic knee surgery (~03/21/21) Limited Synovectomy w/Manipulation - Rt Knee Hx of arthroscopic knee surgery (~03/15/20) loose body removed, LEFT KNEE Family History Family History Father Diabetes mellitus Hypertension Family history of elevated blood lipids Family history of cardiovascular disease Malignant neoplasm of prostate Mother Hypertension Other Lung cancer Social History Social History Social History: Caffeine-coffee/soda Smoking status: Never smoker Second hand tobacco smoke exposure: No Alcohol intake: never Substance use: never Substance use type: does not use Lack of Transportation: No Lack of Food: Never True Current Housing: I Have Housing Concerned About Future Housing: No Difficulty Paying Gas/Electric Bills: No Difficulty Paying for Meds: No Currently Unemployed: No Education: Bachelor's Degree Difficulty w/ Childcare or Family Care: No Living arrangements: with family Occupation/Education: occupation 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 Please see nursing chart for further information. There is no relevant family history pertinent to the presenting complaint Exam Narrative: GENERAL: Well-appearing, in no acute distress. EYES: EOMI. No redness or drainage. Conjunctivae normal. ENT: Mucous membranes pink and moist. No rhinorrhea. TMs normal bilaterally. Throat normal. Uvula midline. NECK: Normal AROM. Supple. CHEST: No respiratory distress. Wheezing to all [place]. speaks full sentences. HEART: Regular rate and rhythm. No murmur appreciated. ABDOMEN: Soft, nontender, nondistended, normal active bowel sounds. EXTREMITIES: Normal range of motion. No edema. SKIN: Warm, dry, no rash. Capillary refill normal. Normal skin turgor. NEURO: Alert and oriented x3. Gait steady. PSYCH: Normal affect.
== END 2023-02-27 16:13 | disposition home or self-care (01) ==
PROVIDERS: Emergency Provider Nurse Practitioner Family; PCP Family Medicine
DX: J40 Bronchitis, not specified as acute or chronic (principal); I10 Essential (primary) hypertension; Z86.16 Personal history of COVID-19
CPT/HCPCS: 99213; G0463

== ENCOUNTER 2023-09-23 12:11 | Emergency (ER) | payer BC, SELFPAY ==
[2023-09-23 12:16] VITALS: BP 141/72; PULSE 95; RESP 16; TEMP 36.7; O2SAT 100
--- NOTE | 2023-09-23 12:46 | ED.DIZZY ---
HPI - Dizziness General Chief Complaint: Dizziness Stated Complaint: Dizziness Time Seen by Provider: 09/23/23 12:31 Source: patient and RN notes reviewed Mode of arrival: ambulatory Limitations: no limitations History of Present Illness HPI Narrative: Patient presents today complaining of 4 day history of intermittent dizziness that has become more constant over the last 2 days. Dizziness is worse with head movement and when rolling over in bed. He had 2 episodes of vomiting at onset, none since, but does have some lingering nausea. Took some Dramamine last night and half of 1 this morning with some very mild relief of nausea, but no relief of dizziness. Denies chest pain, shortness of breath, headache, vision changes, ear pain, but does report some ear ringing. Denies falls, but has had some near falls. Related Data Allergies Allergy/AdvReac Type Severity Reaction Status Date / Time No Known Allergies Allergy Verified 08/22/23 14:21 Review of Systems Review of Systems: CONSTITUTIONAL: Denies body aches, fever, chills, or sweats. EYES: Denies visual changes, redness, or discharge. ENT: Denies rhinorrhea, congestion, sore throat, or otalgia.+ ear ringing CARDIOVASCULAR: Denies chest pain, palpitations, or edema. RESPIRATORY: Denies cough or dyspnea. GASTROINTESTINAL: Denies abdominal pain, or diarrhea.+ nausea, vomiting GENITOURINARY: Denies dysuria or hematuria. SKIN: Denies rash, itching, or wounds. MUSCULOSKELETAL: Denies back pain, joint pain, or myalgia. NEUROLOGIC: Denies headache, numbness, tingling, or weakness.+ dizziness PSYCH: Denies depression or anxiety. [facility] Past Medical History Medical History Allergic conjunctivitis of both eyes COVID-19 Essential hypertension (04/15/17) Family history of early CAD grandfather age 37 History of gynecomastia Testicular dysfunction Varicose vein of leg Surgical History Surgical History History of arthroscopic knee surgery (~03/21/21) Limited Synovectomy w/Manipulation - Rt Knee Hx of arthroscopic knee surgery (~03/15/20) loose body removed, LEFT KNEE Family History Family History Father Diabetes mellitus Hypertension Family history of elevated blood lipids Family history of cardiovascular disease Malignant neoplasm of prostate Mother Hypertension Other Lung cancer Social History Social History Social History: Caffeine-coffee/soda Smoking status: Never smoker Second hand tobacco smoke exposure: No Alcohol intake: never Substance use: never Substance use type: does not use Do You Feel Safe in your Home?: Yes Lack of Transportation: No Lack of Food: Never True Current Housing: I Have Housing Concerned About Future Housing: No Difficulty Paying Gas/Electric Bills: No Difficulty Paying for Meds: No Currently Unemployed: No Education: Bachelor's Degree Difficulty w/ Childcare or Family Care: No Living arrangements: with family Occupation/Education: occupation 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 Please see nursing chart for further information. There is no relevant family history pertinent to the presenting complaint Exam Narrative: GENERAL: Well-appearing, well-nourished, and in no acute distress. HEAD: Normocephalic, atraumatic. EYES: EOMI. PERRL. No nystagmus. No redness or drainage. Conjunctivae normal. ENT: Mucous membranes pink and moist. Nares clear. No rhinorrhea. TMs normal bilaterally. Throat normal. Uvula midline.
== END 2023-09-23 12:54 | disposition home or self-care (01) ==
PROVIDERS: Emergency Provider Nurse Practitioner; PCP Family Medicine
DX: R42 Dizziness and giddiness (principal); I10 Essential (primary) hypertension; Z86.16 Personal history of COVID-19
CPT/HCPCS: 99213; G0463

== ENCOUNTER 2025-02-19 08:45 | Outpatient (CLI) | payer BC, SELFPAY ==
--- OUTSIDE RECORDS SUMMARY | 2025-02-19 08:48 | XMS_ITS | Clinical Summary ---
Author Organization [facility] at the [facility] Address [address] [place] [address] Care Team Providers Care Service Line Layer Name Role Phone Patel Stover MD Primary Care Provider [phone] Allergies No known active allergies Medications lisinopril-hyd roCHLOROthiazi de (ZESTORETIC) 10-12.5 mg per tablet Take 1 tablet by mouth daily 08/28/19 23 Active BD Luer-Brynn Syringe 3 mL 25 gauge x 1 syringe USE WITH TESTOSTERONE 08/31/19 23 Active testosterone enanthate 200 mg/mL injection INJECT 200 MG (1 ML) INTRAMUSCULARLY EVERY 2 WEEKS 08/31/19 23 Active ALPRAZolam (XANAX) 0.5 mg tablet Take 1 tab before leaving home. Take 2nd tab upon arrival to office. 2 tablet 03/18/20 23 Active benzonatate (TESSALON) 200 mg capsule TAKE 1 TABLET BY MOUTH 3 TIMES A DAY NEEDED FOR COUGH 02/28/20 23 Active Active Problems Problem Noted Date Diagnosed Date Varicose veins of leg with pain, left 03/22/2023 Primary hypertension 02/28/2023 Assessment & Plan (02/28/2023 3:03 PM TRIGONOMETRY TEACHER): Impression: Chronic and stable. Plan: Continue Zestoretic Varicose veins with pain 10/30/2022 Assessment & Plan (05/09/2023 1:54 PM TRIGONOMETRY TEACHER): Left GSV EVLT with 30 stab phlebectomies 03/22/2023. Patient recovered well no concerns today. Venous duplex shows no acute DVT with the GSV ablated 5 cm from the origin to [id number]. Plan: Follow-up as needed. Assessment & Plan (02/28/2023 3:04 PM TRIGONOMETRY TEACHER): Impression: Patient is status post EVLT with stab phlebectomies to the right lower extremity. Patient reports pre procedural discomfort to the right lower extremity has resolved. Stab phlebectomy sites are healed. No acute DVT was seen to postop day 3 and 4 week venous duplex study. Patient continues to complain of discomfort to his left lower extremity. Plan: Patient is scheduled for an EVLT with stab phlebectomies of the left lower extremity on March 22. -recommend patient to continue utilizing compression therapy. Immunizations Immunization Administration Dates Next Due Influenza, Quadrivalent, Shannon l Culture-based MDCK, Preservative Free, Antibiotic Free, Intramuscular 12/16/2021 Influenza, Quadrivalent, Spl it, Preservative Free, Intramuscular 12/03/2020,01/13/2020,01/16/2018 Tdap 05/26/2019 Surgical History Surgery Date Site/Laterality Comments KNEE SURGERY 04/01/2019 - 03/31/2020 Bilateral 2020 Medical History Medical History Date Comments Hypertension Family History Medical History Relation Name Comments Heart disease Father Hypertension Father Cancer Maternal Grandfather Cancer Maternal Grandmother Hypertension Mother Heart disease Paternal Grandfather Stroke Paternal Grandmother No Known Problems Sister No Known Problems Son Relation Name Status Comments Father Maternal Grandfather Maternal Grandmother Mother Paternal Grandfather Paternal Grandmother Sister Son Social History Tobacco Use Types Packs/Day Years Used Date Smoking Tobacco: Never Tobacco Cessation:Counseling Given: Not Answered Personal Safety Answer Date Recorded Getting School Help Needed Not on file 03/18 Sex and Gender Information Value Date Recorded Sex Assigned at Not on file Legal Sex Male 3:42 PM CDT Gender Identity Male 10/23/2022 2:25 PM CDT Sexual Orientation Straight 10/23/2022 2: 25 PM CDT Last Filed Vital Signs Vital Sign Reading Time Taken Comments Blood Pressure 135/84 05/08/2023 2:07 PM TRIGONOMETRY TEACHER Pulse 71 05/08/2023 2:07 PM TRIGONOMETRY TEACHER Temperature - - Respiratory Rate - - Oxygen Saturation - - Inhaled Oxygen Concentration - - Weight 111.1 kg (245 lb) 05/08/2023 2:07 PM TRIGONOMETRY TEACHER Height 193 cm (6' 4) 05/08/2023 2:07 PM TRIGONOMETRY TEACHER Body Mass Index 29.82 05/08/2023 2:07 PM TRIGONOMETRY TEACHER Plan of Treatment Health Maintenance Due Date Last Done Comments Depression Screening 1985 Hepatitis C Screening 1985 Varicella Vaccines (1 of 2 - 13+ 2-dose series) 1996 Hepatitis B Screening 2001 Regular Well Visit/Exam 18-64 2001 HPV Vaccines (1 - 3-dose SCDM series) 2010 Covid-19 Vaccine ( season) 2024 12/16/2021, 01/15/2021, 06/16/2020, Additional history exists Influenza Vaccine (#1) 2024 2, 12/03/2020, 01/13/2020, Additional history exists DTaP/Tdap/Td Vaccine (2 - Td or Tdap) 05/26/2029 05/26/2019 Pneumococcal vaccine <65 Aged Out No longer eligible based on patient's age to complete this topic Insurance [employer] OOS ANTHEM ACCESS Care Teams Service Line Layer Relationship Specialty Start Date End Date Patel Stover MD PCP - General Family Medicine 09/04/22
--- NOTE | 2025-02-19 08:50 | EST_ITS ---
Patient Info Name: George Egan Age: 39 years : 1985 Gender: Male Ht: 75 in Wt: 248 lbs BSA: 2.47 m2 HR: 63 bpm BP: 130 / 81 mmHg Heart Rhythm: Sinus Rhythm Exam Date: 02/19/2025 8:50 AM Patient Status: O Admit Date: 02/19/2025 Exam Type: CA stress test treadmill A treadmill exercise stress test was performed. Staff Referring Physician: Dedrick Gonsalves Attending Provider: Dedrick Gonsalves Exercise Technologist: Ritu Lombardi Exercise Physician: Adonis Montenegro DO Summary 1. 1. Negative Mike exercise stress test for ischemic ST changes by ECG criteria. 2. 2. Good functional capacity, achieving 12 METs of workload. 3. 3. Appropriate HR response to exercise. 4. 4. Appropriate HR recovery at 1 minute post exercise. 5. 5. No imaging with stress testing. 6. 6. Patient informed of the above results. Protocol: Mike Stress ECG Details Stage: REST Duration (min): 0 min : 54 sec Speed (mph): 0.0 Grade (%): 0 HR (bpm): 62 SBP (mmHg): 130 DBP (mmHg): 81 METS: --- Stage: REST Duration (min): 4 min : 44 sec Speed (mph): 0.0 Grade (%): 0 HR (bpm): 79 SBP (mmHg): 130 DBP (mmHg): 81 METS: --- Stage: STAGE 1 Duration (min): 1 min : 0 sec Speed (mph): 1.7 Grade (%): 10 HR (bpm): 101 SBP (mmHg): 130 DBP (mmHg): 81 METS: --- Stage: STAGE 1 Duration (min): 2 min : 0 sec Speed (mph): 1.7 Grade (%): 10 HR (bpm): 109 SBP (mmHg): 130 DBP (mmHg): 81 METS: --- Stage: STAGE 1 Duration (min): 3 min : 0 sec Speed (mph): 1.7 Grade (%): 10 HR (bpm): 112 SBP (mmHg): 142 DBP (mmHg): 63 METS: --- Stage: STAGE 2 Duration (min): 1 min : 0 sec Speed (mph): 2.5 Grade (%): 12 HR (bpm): 122 SBP (mmHg): 142 DBP (mmHg): 63 METS: --- Stage: STAGE 2 Duration (min): 2 min : 0 sec Speed (mph): 2.5 Grade (%): 12 HR (bpm): 127 SBP (mmHg): 135 DBP (mmHg): 58 METS: --- Stage: STAGE 2 Duration (min): 3 min : 0 sec Speed (mph): 2.5 Grade (%): 12 HR (bpm): 134 SBP (mmHg): 135 DBP (mmHg): 58 METS: --- Stage: STAGE 3 Duration (min): 1 min : 0 sec Speed (mph): 3.4 Grade (%): 14 HR (bpm): 141 SBP (mmHg): 134 DBP (mmHg): 58 METS: --- Stage: STAGE 3 Duration (min): 2 min : 0 sec Speed (mph): 3.4 Grade (%): 14 HR (bpm): 146 SBP (mmHg): 134 DBP (mmHg): 58 METS: --- Stage: STAGE 3 Duration (min): 3 min : 0 sec Speed (mph): 3.4 Grade (%): 14 HR (bpm): 152 SBP (mmHg): 133 DBP (mmHg): 52 METS: --- Stage: STAGE 4 Duration (min): 1 min : 0 sec Speed (mph): 4.2 Grade (%): 16 HR (bpm): 158 SBP (mmHg): 133 DBP (mmHg): 52 METS: --- Stage: STAGE 4 Duration (min): 1 min : 1 sec Speed (mph): 4.2 Grade (%): 16 HR (bpm): 158 SBP (mmHg): 133 DBP (mmHg): 52 METS: --- Stage: RECOVERY Duration (min): 0 min : 58 sec Speed (mph): 0.0 Grade (%): 0 HR (bpm): 145 SBP (mmHg): 127 DBP (mmHg): 51 METS: --- Stage: RECOVERY Duration (min): 1 min : 58 sec Speed (mph): 0.0 Grade (%): 0 HR (bpm): 129 SBP (mmHg): 127 DBP (mmHg): 51 METS: --- Stage: RECOVERY Duration (min): 2 min : 58 sec Speed (mph): 0.0 Grade (%): 0 HR (bpm): 117 SBP (mmHg): 127 DBP (mmHg): 51 METS: --- Stage: RECOVERY Duration (min): 3 min : 58 sec Speed (mph): 0.0 Grade (%): 0 HR (bpm): 113 SBP (mmHg): 164 DBP (mmHg): 83 METS: --- Stage: RECOVERY Duration (min): 4 min : 58 sec Speed (mph): 0.0 Grade (%): 0 HR (bpm): 109 SBP (mmHg): 156 DBP (mmHg): 79 METS: --- Stage: RECOVERY Duration (min): 5 min : 58 sec Speed (mph): 0.0 Grade (%): 0 HR (bpm): 107 SBP (mmHg): 156 DBP (mmHg): 79 METS: --- Stage: RECOVERY Duration (min): 6 min : 58 sec Speed (mph): 0.0 Grade (%): 0 HR (bpm): 105 SBP (mmHg): 151 DBP (mmHg): 79 METS: --- Stage: RECOVERY Duration (min): 7 min : 58 sec Speed (mph): 0.0 Grade (%): 0 HR (bpm): 106 SBP (mmHg): 151 DBP (mmHg): 79 METS: --- Stage: RECOVERY Duration (min): 8 min : 58 sec Speed (mph): 0.0 Grade (%): 0 HR (bpm): 104 SBP (mmHg): 142 DBP (mmHg): 78 METS: --- Stage: RECOVERY Duration (min): 9 min : 58 sec Speed (mph): 0.0 Grade (%): 0 HR (bpm): 103 SBP (mmHg): 142 DBP (mmHg): 78 METS: --- Stage: RECOVERY Duration (min): 10 min : 58 sec Speed (mph): 0.0 Grade (%): 0 HR (bpm): 102 SBP (mmHg): 135 DBP (mmHg): 81 METS: --- Stage: RECOVERY Duration (min): 11 min : 57 sec Speed (mph): 0.0 Grade (%): 0 HR (bpm): 103 SBP (mmHg): 135 DBP (mmHg): 81 METS: --- Rest HR: 79 bpm Peak HR: 159 bpm Rest Sys BP: 130 mmHg Peak Sys BP: 164 mmHg Max Pred HR: 179 bpm % Max Pred HR: 89 % Target HR: 152 bpm Max RPP: 26,076 bpm*mmHg Sawant Score: 1 Termination Reason: Reached target heart rate or workload Cardiac Symptoms: Shortness of breath, Chest tightness Max ST Seg Deviation: -1.90 mm Total Time: 10 min : 1 sec Rest Carmona BP: 81 mmHg Peak Carmona BP: 83 mmHg Angina Score: None Total METS: 12.1 Resting ECG Sinus rhythm. Stress ECG No ST changes. Arrhythmias None. Report Signatures
--- NOTE | 2025-03-02 11:44 | WPDHOLTEREM ---
Holter/Event Monitor Holter/Event Monitor Date of procedure: 02/19/25 Holter/Event Procedure: 3-7 Day Holter Monitor Indications: Palpitations Conclusion: 1. 3 days holter monitor on 02/19/25. 2. Predominant rhythm is sinus rhythm. HR range 49-138 bpm; average HR 80 bpm. 3. There are rare premature supraventricular complexes, rare supraventricular couplets, and rare supraventricular triplets. There is 1 episode of supraventricular tachycardia at 130 bpm lasting 6 beats. 4. There are rare premature ventricular complexes and rare ventricular couplets. No ventricular tachycardia. 5. No significant pauses greater than 3 seconds. 6. Patient reports 4 episodes of symptoms of lightheadedness, shortness of breath, unable to breathe which demonstrate sinus rhythm, HR range 79-131 bpm.
== END 2025-02-19 08:46 | disposition home or self-care (01) ==
PROVIDERS: PCP Family Medicine; Visit Provider Student in an Organized Health Care Education/Training Program
DX: R06.09 Other forms of dyspnea (principal); R07.9 Chest pain, unspecified; R00.2 Palpitations
CPT/HCPCS: 93017; 93242